=== PATIENT | female | born 1955 | race Caucasian/White ===

== ENCOUNTER → 2018-05-24 14:25 | Outpatient (CLI) | payer OTHER, SELFPAY ==
--- NOTE | 2018-05-24 14:27 | RAD_ITS ---
STUDY: X-RAY - CERVICAL SPINE REASON FOR EXAM: Female, 63 years old. Right-sided neck pain. No known trauma. TECHNIQUE: 6 view(s) of the cervical spine were obtained. COMPARISON: None FINDINGS: Normal anterior atlantoaxial articulation. Normal odontoid process. Normal cervical lordosis. Normal vertebral bodies and endplates. There is intervertebral disc space narrowing at C4-5, C5-6 and C6-7 with osteophyte formation most marked at C5-6 and C6-7. There is anterior bony neural foraminal encroachment at C5-6 and C6-7 bilaterally, most marked on the left. There is diffuse uncovertebral and facet sclerosis. The soft tissue structures are unremarkable. RAD/Cerv Spine 4 or 5 Views IMPRESSION: Cervical spondylosis as described. Electronically Signed: Demario Christie MD at 11:24 EDT , Service support ,
== END ==
PROVIDERS: Family Provider Internal Medicine; PCP Internal Medicine; Visit Provider Orthopaedic Surgery
DX: M54.2 Cervicalgia (principal)
CPT/HCPCS: 72050

== ENCOUNTER 2018-08-06 11:00 | Outpatient (RCR) | payer OTHER, SELFPAY ==
--- NOTE | 2018-06-06 10:59 | HP.PTEVAL_ITS ---
Patient's Visit Information FIOR LEÓN is a 63 year old F referred to Physical Therapy by Latia Santillan DO with a diagnosis of R shoulder calcific tendonitis. Date of Evaluation: 06/06/18 Physical Therapist: Juan Zaldivar, PT, - Visit Plan Frequency: 2x /Week Duration: 3 Weeks Plan: R shoulder strengthening of rot cuff, scap stab ex's, UBE, HEP, and US with acetic acid - Subjective Subjective: Pt reports she has had intermittent R shoulder pain for a couple years. Pt reports the pain continued to worsen, which is why she went to her Dr. Pt reports she had xrays which revealed calcific tendonitis in her R shoulder. Pt is R hand dom. Pt reports she has difficulty with reaching behind her back or out to open a door. Pt reports holding her grandchild also causes her increased pain. No PMHx of R shoulder complications. No T or N in R UE. Pt reports sleep difficulty at times secondary to pain. Pt c/o occasional neck pain which coincides with her R shoulder pain. 2/10 pain at rest, 6/10 pain at worst - Pain R shoulder Pain Intensity (Out of 10): 2 Pain Intensity Range: 6 - Objective Neuro: B UE sensation is WNL to light touch. B bicepital reflex= 2/3. Palpation : Pt is very sore with palpation of supraspinatus and biceps tendon. No obvious deformity. ROM: L shoulder flex= 165, abd= 170, ER= 55, IR WNL; R shoulder flex = 150, abd= 140, ER= 50, IR WNL. MMT: R shoulder is grossly 4-/5 throughout and painful in all positions. Special testing: pos empty can sign - Goals Goal 1:: Decrease R shoulder pain x 50% to aid with sleep Goal Time Frame: 4-6 Weeks Goal 2:: Increase R shoulder strength x 1 grade to aid with IADL's Goal Time Frame: 4-6 Weeks Goal 3:: Increase R shoulder flex and abd x 1 grade to aid with overhead activity Goal Time Frame: 4-6 Weeks Goal 4:: I with HEP Goal Time Frame: 4-6 Weeks - Rehabilitation Potential Physical Therapy Diagnosis: R shoulder pain, weakness, and limited ROM secondary to calcific tendonitis of R shoulder Rehabilitation Potential: Good - Anticipated Interventions Patient/Client Instruction: Educate patient on: Condition, Plan of Care For the Purpose of:: To improve self management Therapeutic Exercise to Include: Strength training, Endurance training, Flexibilty training, Active ROM, Scapular Strength/Stabilization For the Purpose of:: To decrease pain, To increase ROM, To improve muscle performance and motor function Ultrasound (thermal/non thermal): Yes - acetic acid For the Purpose of:: To decrease pain Thank you for the opportunity to evaluate your patient. For Medicare and Medicare HMO plans, please review the plan of care and approve it. It will need to be FAXED BACK to us at [phone] for Medicare purposes. Please let me know if there are questions or concerns regarding this plan of care. Physician Signature: Date:
--- NOTE | 2018-09-24 09:49 | HP.PT.NRP ---
HP - Discharge Summary (1) - Patient Information FIOR LEÓN was seen in my office for initial evaluation on 06/06/18. The following Plan of Care was established for this patient: Initial Frequency: 2x /Week Initial Duration: 3 Weeks - Anticipated Interventions Patient/Client Instruction: Educate patient on: Condition, Plan of Care For the Purpose of:: To improve self management Therapeutic Exercise to Include: Strength training, Endurance training, Flexibilty training, Active ROM, Scapular Strength/Stabilization For the Purpose of:: To decrease pain, To increase ROM, To improve muscle performance and motor function Ultrasound (thermal/non thermal): Yes - acetic acid For the Purpose of:: To decrease pain This patient was last seen in our office . Pertinent comments regarding their Physical therapy will appear below: Pt was treated for 5 PT visits for her R shoulder pain through the date of 08/06/18. Pt has not returned through todays date, and is therefore discontinued at this time. At this point I will be discontinuing this patient from physical therapy. I would be happy to see this patient again in the future if found appropriate by the physician. Thank you! Juan Zaldivar, PT,
== END 2018-08-06 19:00 | disposition home or self-care (01) ==
LOC: PT 11:00
PROVIDERS: Family Provider Internal Medicine; PCP Internal Medicine; Visit Provider Orthopaedic Surgery
DX: M75.31 Calcific tendinitis of right shoulder (principal); M65.4 Radial styloid tenosynovitis [de Quervain]
CPT/HCPCS: 97033; 97035; 97110; 97161

== ENCOUNTER → 2018-09-10 15:13 | Outpatient (CLI) | payer OTHER, SELFPAY ==
[2018-09-15 08:29] LABS: HPV APTIMA, High Risk Negative (Negative)
== END ==
PROVIDERS: Family Provider Internal Medicine; PCP Internal Medicine; Referring Provider Nurse Practitioner Women's Health; Visit Provider Nurse Practitioner Women's Health
DX: Z12.4 Encounter for screening for malignant neoplasm of cervix (principal)
CPT/HCPCS: 88175; G0145

== ENCOUNTER → 2018-09-21 09:55 | Outpatient (CLI) | payer OTHER, SELFPAY ==
--- NOTE | 2018-09-21 09:57 | BI_ITS ---
MAMMOGRAPHY - BILATERAL SCREENING REASON FOR EXAM: Female, 63 years old. Routine annual screening examination. PERTINENT HISTORY: Non-contributory. TECHNIQUE: Digital bilateral breast whitley (3D mammographic acquisition) in the CC and MLO projections. 2-D mediolateral oblique (MLO) and craniocaudad (CC) views of both breasts were obtained. CAD: Full Field Digital Mammography with Computer Added Detection was performed. COMPARISON: Comparison is made with prior study dated September 20, 2017 and August 16, 2016. FINDINGS: Breast Composition: There are scattered areas of fibroglandular density. There are no dominant masses or suspicious calcifications. No other significant abnormalities are identified. There has been no significant change since the prior study. BI/SCREENING MAMM (CAD), BILAT IMPRESSION: Stable bilateral screening mammogram. Yearly follow-up mammogram recommended. (A) ASSESSMENT CATEGORY: BIRADS Category 1: Negative. A letter regarding these results will be sent to the patient by the facility within 30 days. Approximately 10% of breast cancers are not detected by mammography. A normal mammogram should not delay biopsy of a clinically suspicious abnormality. [id number] Electronically Signed: Kenneth Hernandez MD at 12:41 EDT Tel [phone], Service support ,
== END ==
PROVIDERS: Family Provider Internal Medicine; PCP Internal Medicine; Referring Provider Nurse Practitioner Women's Health; Visit Provider Nurse Practitioner Women's Health
DX: Z12.31 Encounter for screening mammogram for malignant neoplasm of breast (principal)
CPT/HCPCS: 77063; 77067

== ENCOUNTER → 2018-11-02 07:42 | Outpatient (CLI) | payer OTHER, SELFPAY ==
--- NOTE | 2018-11-02 07:46 | MRI_ITS ---
STUDY: MRI RIGHT SHOULDER REASON FOR EXAM: Female, 63 years old. Shoulder pain, decreased range of motion and decreased strength. No known injury. TECHNIQUE: Standardized fat and water weighted pulse sequences were obtained in all 3 orthogonal planes. COMPARISON: None. FINDINGS: There is supraspinatus and infraspinatus tendinosis with calcification compatible with calcific tendinitis (coronal series 4 images 6-12). No full-thickness tear is identified. There is subscapularis tendinosis without a full-thickness tear (axial series 2 images 7-11). Normal teres minor tendon. Normal supraspinatus muscle. Normal infraspinatus muscle. Normal subscapularis muscle. Normal teres minor muscle. There is mild arthrosis of the glenohumeral joint with a glenohumeral joint effusion (axial series 2 images 6-11). Normal humeral head and visualized proximal humerus. Normal biceps labral complex. Normal intracapsular long biceps tendon. Normal labrum. Normal capsulo- ligamentous complex. Normal rotator interval. There is acromioclavicular joint hypertrophy with narrowing of the subacromial space (sagittal series 6 images 10-14). There is a small AC joint effusion (coronal series 4 image 13). There is a Type II morphology (curved), with a neutral orientation. There is a small amount of fluid in the subacromial-subdeltoid bursa (coronal series 4 image 10). Normal visualized coracohumeral and coracoacromial ligaments. Normal quadrilateral space. Normal axillary space. Normal deltoid muscle. Normal trapezius muscle. MRI/Upper Ext Joint Only(Routine) IMPRESSION: Supraspinatus and infraspinatus tendinosis with calcification compatible with calcific tendinitis. Subscapularis tendinosis without a full-thickness tear. Mild arthrosis of the glenohumeral joint. Acromioclavicular joint hypertrophy with narrowing of the subacromial space. Small AC joint effusion. Small glenohumeral joint effusion with a small amount of fluid in the subacromial-subdeltoid bursa. Electronically Signed: Demario Christie MD at 17:01 EST , Service support ,
== END ==
PROVIDERS: Family Provider Internal Medicine; PCP Internal Medicine; Referring Provider Orthopaedic Surgery; Visit Provider Orthopaedic Surgery
DX: M75.41 Impingement syndrome of right shoulder (principal); M75.81 Other shoulder lesions, right shoulder
CPT/HCPCS: 73221

== ENCOUNTER → 2019-08-20 | Outpatient (CLI) | payer OTHER, SELFPAY ==
[2019-05-10 15:50] VITALS: BMI 26.3
--- NOTE | 2019-08-20 15:29 | RAD_ITS ---
STUDY: X-RAY - RIGHT HAND REASON FOR EXAM: Pain. TECHNIQUE: 3 view(s) of the hand. COMPARISON: None. FINDINGS: Normal radiocarpal articulation. Normal distal radioulnar joint. Normal visualized carpal bones. Normal carpal articulations Normal carpometacarpal articulation of the thumb. Normal second through fifth carpometacarpal joints. Normal metacarpi. Normal metacarpophalangeal joint of the thumb. Normal interphalangeal joint of the thumb. Normal proximal and distal phalanges of the thumb. Normal metacarpophalangeal joints of the second through fifth fingers. Normal proximal and distal interphalangeal joints of the second through fifth fingers. Normal phalanges of the second through fifth fingers. The soft tissue structures are unremarkable. RAD/Hand Min 3 Views IMPRESSION: Normal x-ray examination of the right hand. Electronically Signed: Rolando Escobar MD at 15:58 EDT Tel , Service support ,
== END | disposition home or self-care (01) ==
LOC: HPRAD 15:28
PROVIDERS: Family Provider Internal Medicine; PCP Internal Medicine; Referring Provider Orthopaedic Surgery; Visit Provider Orthopaedic Surgery
DX: M65.341 Trigger finger, right ring finger (principal); M79.644 Pain in right finger(s)
CPT/HCPCS: 73130

== ENCOUNTER → 2019-09-23 | Outpatient (CLI) | payer OTHER, SELFPAY ==
[2019-03-12 14:42] VITALS: BMI 26.3
[2019-09-23 10:04] VITALS: BMI 26.3
--- NOTE | 2019-09-23 10:35 | BI_ITS ---
MAMMOGRAPHY - BILATERAL SCREENING REASON FOR EXAM: Female, 64 years old. Routine annual screening examination. PERTINENT HISTORY: Non-contributory. TECHNIQUE: Digital bilateral breast kenan (3D mammographic acquisition) in the CC and MLO projections. 2-D mediolateral oblique (MLO) and craniocaudad (CC) views of both breasts were obtained. CAD: Full Field Digital Mammography with Computer Added Detection was performed. COMPARISON: Comparison is made with prior study September 21, 2018 and September 20, 2017. FINDINGS: Breast Composition: There are scattered areas of fibroglandular density. There are no dominant masses or suspicious calcifications. Stable small benign-appearing bilateral axillary lymph nodes. No other significant abnormalities are identified. There has been no significant change since the prior study. BI/SCREEN MAMM (CAD) W/KENAN BILAT IMPRESSION: Stable bilateral screening mammogram. Yearly follow-up mammogram recommended. (A) ASSESSMENT CATEGORY: BIRADS Category 2: Benign. A letter regarding these results will be sent to the patient by the facility within 30 days. Approximately 10% of breast cancers are not detected by mammography. A normal mammogram should not delay biopsy of a clinically suspicious abnormality. [id number] Electronically Signed: Kenneth Hernandez, at 13:53 EDT , Service support ,
== END | disposition home or self-care (01) ==
LOC: OPBI 10:33
PROVIDERS: Family Provider Internal Medicine; PCP Internal Medicine; Referring Provider Nurse Practitioner Women's Health; Visit Provider Nurse Practitioner Women's Health
DX: Z12.31 Encounter for screening mammogram for malignant neoplasm of breast (principal)
CPT/HCPCS: 77063; 77067

== ENCOUNTER → 2020-05-14 13:46 | Outpatient (CLI) | payer OTHER, SELFPAY ==
[2020-05-14 13:42] VITALS: BMI 26.3
--- NOTE | 2020-05-14 13:47 | RAD_ITS ---
STUDY: X-RAY - CERVICAL SPINE REASON FOR EXAM: Female, 65 years old. NECK PAIN AND NUMBNESS LEFT HAND TECHNIQUE: 5 view(s) of the cervical spine were obtained including oblique views. COMPARISON: Comparison is made with prior study dated May 24, 2018. FINDINGS: There are degenerative changes of the anterior atlantoaxial articulation. Normal odontoid process. There is straightening of the normal cervical lordosis. There is endplate spondylosis at the C5-C6 and C6-C7 levels. There is degenerative disc disease with disc space narrowing at the C5-C6 and C6-C7 levels.. Stable neural foraminal stenosis at the C5-6 and C6-C7 levels worse on the left side. The soft tissue structures are unremarkable. RAD/Cerv Spine 4 or 5 Views IMPRESSION: Disc space narrowing and spondylosis at the C5-C6 and C6-C7 levels with bilateral neural foraminal stenosis. Electronically Signed: Kenneth Hernandez, at 12:43 EDT , Service support ,
== END ==
PROVIDERS: PCP Internal Medicine; Referring Provider Orthopaedic Surgery; Visit Provider Orthopaedic Surgery
DX: M79.602 Pain in left arm (principal)
CPT/HCPCS: 72050

== ENCOUNTER → 2020-05-21 | Outpatient (CLI) | payer OTHER, SELFPAY ==
[2020-05-14 13:42] VITALS: BMI 26.3
--- NOTE | 2020-05-21 11:07 | MRI_ITS ---
STUDY: MRI CERVICAL SPINE WITHOUT CONTRAST REASON FOR EXAM: Female, 65 years old. left arm pain, numbness/tingling in arm and fingers TECHNIQUE: Standardized fat and water weighted pulse sequences were obtained in the sagittal and axial planes. COMPARISON: None FINDINGS: Normal foramen magnum and brainstem-cervical cord junction. There is straightening of the normal cervical lordosis. C2-3: Normal endplates. Normal disc height, signal and morphology. Normal central canal and intervertebral neural foramina. C3-4: There is minimal disc space narrowing and endplate spondylosis. There is no significant disc herniation, central canal or foraminal stenosis. C4-5: There is minimal disc space narrowing and endplate spondylosis. There is no significant disc herniation, central canal or foraminal stenosis. There is moderate left facet arthropathy C5-6: There is moderate disc space narrowing and endplates spondylosis. Mild disc osteophyte complex with mild central canal stenosis. Uncovertebral and facet adenopathy with severe left foraminal stenosis. No significant right foraminal stenosis. C6-7: There is moderate disc space narrowing and endplates spondylosis. Mild disc osteophyte complex with mild central canal stenosis. Uncovertebral and facet arthropathy with moderate left foraminal stenosis no significant right foraminal stenosis. C7-T1: There is minimal disc space narrowing and endplate spondylosis. There is no significant disc herniation, central canal or foraminal stenosis. Normal cervical cord. MRI/Spine Cervical (Routine) IMPRESSION: C5/C6: Severe left foraminal stenosis. C6/C7: Moderate left foraminal stenosis. Electronically Signed: Janene Conway MD at 11:54 EDT Tel , Service support ,
== END | disposition home or self-care (01) ==
PROVIDERS: PCP Internal Medicine; Referring Provider Orthopaedic Surgery; Visit Provider Orthopaedic Surgery
DX: G54.2 Cervical root disorders, not elsewhere classified (principal); M50.10 Cervical disc disorder with radiculopathy, unspecified cervical region
CPT/HCPCS: 72141

== ENCOUNTER → 2020-06-02 | Outpatient (CLI) | payer OTHER, SELFPAY ==
[2020-06-02 14:55] VITALS: BMI 26.3
--- NOTE | 2020-06-02 15:01 | RAD_ITS ---
STUDY: X-RAY - RIGHT FOOT CLINICAL: Right foot pain. TECHNIQUE: 3 view(s) of the foot. COMPARISON: None. FINDINGS: Normal talus, calcaneus, and tarsal bones. Normal visualized subtalar, talonavicular, calcaneocuboid, tarsal and tarsometatarsal articulations. Normal metatarsi. There are marginal osteophytes and joint space narrowing of the metatarsophalangeal joint of the great toe. There is a bipartite fibular sesamoid. Normal interphalangeal joint of the great toe. Normal phalanges of the great toe. Normal second through fifth metatarsophalangeal joints. Normal interphalangeal joints and phalanges of the lesser toes. There is soft tissue swelling at the first metatarsophalangeal joint. RAD/Foot min 3 Views IMPRESSION: Arthrosis of the first metatarsophalangeal joint. Electronically Signed: Rolando Escobar MD at 8:37 EDT Tel , Service support ,
== END | disposition home or self-care (01) ==
LOC: HPRAD 15:01
PROVIDERS: PCP Internal Medicine; Referring Provider Orthopaedic Surgery; Visit Provider Orthopaedic Surgery
DX: M79.671 Pain in right foot (principal)
CPT/HCPCS: 73630

== ENCOUNTER 2020-06-26 13:00 | Outpatient (RCR) | payer OTHER, SELFPAY ==
[2020-05-14 13:42] VITALS: BMI 26.3
[2020-06-02 14:55] VITALS: BMI 26.3
--- NOTE | 2020-06-08 09:41 | HP.PTEVAL ---
Patient's Visit Information FIOR LEÓN is a 65 year old F referred to Physical Therapy by Dr. Latia Santillan DO with a diagnosis of Cervical foraminal stenosis. Date of Evaluation: 06/05/20 Physical Therapist: Asif Hanley DPT - Visit Plan Frequency: 2x /Week Duration: 4 Weeks Plan: Start with mechanical traction, gental strengthening, manual tehniques to levator scap on L side. L UT and scap stretching. - Subjective Pt. is here today for her initial evaluation with diagnosis cervical foraminal stenosis. Pt. reports having L arm N/T into her first and 2nd fingers. Pt. reports symptoms are intermittent. Pt. reprots increased symptoms with looking up, lifting, increased throughout the day. pt. reprots no muscle weakness, she is not dropping any objects. Pt. did have an MRI showing C5-C7 foraminal stenonsis L worse than R. Pt. reports no neck pain, but mostly her symptoms in her hand. Pt. is hopeful to reduce her symptoms in order to get back to all recreational and household work without issues. - Pain L hand Pain Intensity (Out of 10): 2 Pain Intensity Range: 0 Comment: not much pain, but N/T in 4th/fifth fingers - Objective POSTURE: Pt. has slight FH posture, slight rounded shoulders. PALPATION: Pt. has pain with palpation of L levator scapulea. pt. has increased symptoms with LUT and hypomobility at C5-T1, no pain noted. NEURO: Pt. has normal sensation throghout BUEs. Pt. has normal strength thorughout BUEs. ROM: CERVICAL SPINE: flexion- nil loss NE, extension- mod loss increase NW, rotation R min loss increase NW, rotation L mod loss increase NW, SB mod loss bilat NE. B SHOULDERS: normal throughout. MMT: pt. has 5/5 strength throughout BUEs, CERVICAL ISO: normal throughout. Pt. has does have weakness of postural musculature< scapular region. - Special Tests C/S Radiculapathy - Left Upper limb tension test: Negative C/S Radiculapathy - Right Upper limb tension test: Negative C/S Radiculapathy - Left Spurlings: Positive C/S Radiculapathy - Right Spurlings: Negative C/S Radiculapathy - Left Cervical distraction: Negative C/S Radiculapathy - Right Cervical distraction: Negative C/S Radiculapathy - Left Relief test: Positive C/S Radiculapathy - Right Relief test: Negative Sharp Ned: Negative Vertebral Artery Test: Negative Alar Ligament Test: Negative Cervical Sitting: Protrusion - Mechanical Response: No effect Cervical Sitting: Protrusion - Symptoms During Testing: No effect Cervical Sitting: Protrusion - Symptoms After Testing: No effect Cervical Sitting: Retraction - Mechanical Response: No effect Cervical Sitting: Retraction - Symptoms During Testing: Increases Cervical Sitting: Retraction - Symptoms After Testing: No worse Cervical Sitting: Retraction-Extension - Mechanical Response: No effect Cerv Sitting: Retraction-Extension - Symptoms During Testing: Increases Cerv Sitting: Retraction-Extension - Symptoms After Testing: No worse Cervical Sitting: Sidebend Right - Mechanical Response: No effect Cervical Sitting: Sidebend Right - Symptoms During Testing: No effect Cervical Sitting: Sidebend Right - Symptoms After Testing: No effect Cervical Sitting: Sidebend Left - Mechanical Response: No effect Cervical Sitting: Sidebend Left - Symptoms During Testing: No effect Cervical Sitting: Sidebend Left - Symptoms After Testing: No effect Cervical Sitting: Rotation Right - Mechanical Response: No effect Cervical Sitting: Rotation Right - Symptoms During Testing: No effect Cervical Sitting: Rotation Right - Symptoms After Testing: No effect Cervical Sitting: Rotation Left - Mechanical Response: No effect Cervical Sitting: Rotation Left - Symptoms During Testing: Increases Cervical Sitting: Rotation Left - Symptoms After Testing: No worse Cervical Sitting: Flexion - Mechanical Response: No effect Cervical Sitting: Flexion - Symptoms During Testing: No effect Cervical Sitting: Flexion - Symptoms After Testing: No effect - Goals Goal 1:: LTG: Pt. to be I with HEP. Goal Time Frame: 4-6 Weeks Goal 2:: STG: Pt. to have decreased N/T by 50% in hand/arm. Goal Time Frame: 2-4 Weeks Goal 3:: LTG: Pt. to have N/T abolished in L hand. Goal Time Frame: 4-6 Weeks Goal 4:: LTG: Pt. to have increased cervical ROm by 25% in all directions. Goal Time Frame: 4-6 Weeks Goal 5:: LTG: pt. to complete all ADLs and work activities without issues. Goal Time Frame: 4-6 Weeks - Rehabilitation Potential Physical Therapy Diagnosis: Pt. has signs and symptoms consistent with Cervical foraminal stenosis. Pt. has N/T along the C5-C6 nerve dermatonal pattern. No mytomal weakness noted. Pt. would benefit from PT - Anticipated Interventions Patient/Client Instruction: Educate patient on: Condition, Plan of Care, Risk Factors, Benefits of Fitness Program For the Purpose of:: To improve self management, To prevent re-injury, To improve ability to perform tasks related to life management, To improve tolerance to ADL's Therapeutic Exercise to Include: Strength training, Power training, Endurance training, Body mechanics, Postural training, Flexibilty training, Gait and locomotor training, Passive ROM, Active ROM, Dynamic Lumbar Stabilization, Jayme Exercises, Scapular Strength/Stabilization For the Purpose of:: To decrease pain, To decrease swelling/inflammation, To increase ROM, To improve nutrient delivery to tissue, To increase oxygenation perfusion, To improve muscle performance and motor function, To improve ability to perform ADL's, To increase tolerance to activity/condition/position, To decrease level of supervision to perform tasks, To improve ability of physical actions for home/community/work/leisure, To decrease soft tissue restriction, To increase flexibility/ROM Manual Therapy Techniques to Include: Mobilization, Passive ROM, Functional dry needling, Soft tissue mobilization For the Purpose of:: To decrease pain, To decrease swelling/inflammation, To increase ROM, To improve nutrient delivery to tissue Thermo therapy (hot pack): Yes Ultrasound (thermal/non thermal): Yes Intermittent cervical traction: Yes For the Purpose of:: To decrease pain, To decrease swelling/inflammation, To increase ROM Thank you for the opportunity to evaluate your patient. For Medicare and Medicare HMO plans, please review the plan of care and approve it. It will need to be FAXED BACK to us at [phone] for Medicare purposes. For Medicare only, by signing this I certify the plan of care. Please let me know if there are questions or concerns regarding this plan of care. Physician Signature: Date:
--- NOTE | 2020-06-26 15:11 | HP.PTREVAL ---
Dr. Latia Santillan, DO, It has been my pleasure to treat FIOR LEÓN over the last 7 visits for Cervical foraminal stenosis. Please see the progress note below for an update on the physical therapy plan of care! Subjective: Pt. reports overall 95% better. Pt has occassional tingling in her thumb and index finger, but minimally. Pt. reports being HEP compliant. Objective/Function: Pt. has good ROM of cervcial spine, stiff into L rotation and extension. I have her startign some SNAGs into both motions. Pt. is overall doing well. Pt. has mild tringling with enxtension. Pt. has good overall strength. Pt. is to trial exercises on own for 2-3 weeks. If she is doing well I will DC the case, if she has increased symptosm she is to call back in. Pt. consents. Plan Plan: Pt. to trial exercises on own for 2-3 weeks. DC if I do not hear from her in a few weeks. Goals Goal 1:: LTG: Pt. to be I with HEP. Goal Time Frame: 4-6 Weeks Goal Progress: Goal Met Goal 2:: STG: Pt. to have decreased N/T by 50% in hand/arm. Goal Time Frame: 2-4 Weeks Goal Progress: Goal Met Goal 3:: LTG: Pt. to have N/T abolished in L hand. Goal Time Frame: 4-6 Weeks Goal Progress: Progressing Goal 4:: LTG: Pt. to have increased cervical ROm by 25% in all directions. Goal Time Frame: 4-6 Weeks Goal Progress: Goal Met Goal 5:: LTG: pt. to complete all ADLs and work activities without issues. Goal Time Frame: 4-6 Weeks Goal Progress: Goal Met Anticipated Interventions Patient/Client Instruction: Educate patient on: Condition, Plan of Care, Risk Factors, Benefits of Fitness Program For the Purpose of:: To improve self management, To prevent re-injury, To improve ability to perform tasks related to life management, To improve tolerance to ADL's Therapeutic Exercise to Include: Strength training, Power training, Endurance training, Body mechanics, Postural training, Flexibilty training, Gait and locomotor training, Passive ROM, Active ROM, Dynamic Lumbar Stabilization, Jayme Exercises, Scapular Strength/Stabilization For the Purpose of:: To decrease pain, To decrease swelling/inflammation, To increase ROM, To improve nutrient delivery to tissue, To increase oxygenation perfusion, To improve muscle performance and motor function, To improve ability to perform ADL's, To increase tolerance to activity/condition/position, To decrease level of supervision to perform tasks, To improve ability of physical actions for home/community/work/leisure, To decrease soft tissue restriction, To increase flexibility/ROM Manual Therapy Techniques to Include: Mobilization, Passive ROM, Functional dry needling, Soft tissue mobilization For the Purpose of:: To decrease pain, To decrease swelling/inflammation, To increase ROM, To improve nutrient delivery to tissue Thermo therapy (hot pack): Yes Ultrasound (thermal/non thermal): Yes Intermittent cervical traction: Yes For the Purpose of:: To decrease pain, To decrease swelling/inflammation, To increase ROM Please do not hesitate to contact me at [phone] by phone or if you have questions or concerns regarding this new plan of care! Sincerely, Asif Hanley DPT
== END 2020-06-26 19:00 | disposition home or self-care (01) ==
LOC: PT 13:00
PROVIDERS: PCP Internal Medicine; Referring Provider Orthopaedic Surgery; Visit Provider Orthopaedic Surgery
DX: M50.10 Cervical disc disorder with radiculopathy, unspecified cervical region (principal); M48.02 Spinal stenosis, cervical region
CPT/HCPCS: 97012; 97110; 97161; 97164

== ENCOUNTER → 2020-09-24 | Outpatient (CLI) | payer OTHER, SELFPAY ==
[2019-09-23 10:04] VITALS: BMI 26.3
[2020-09-24 10:14] VITALS: BMI 25.0
--- NOTE | 2020-09-24 10:45 | BI_ITS ---
MAMMOGRAPHY - BILATERAL SCREENING REASON FOR EXAM: Female, 65 years old. Routine annual screening examination. PERTINENT HISTORY: Non-contributory. TECHNIQUE: Digital bilateral breast kenan (3D mammographic acquisition) in the CC and MLO projections. 2-D mediolateral oblique (MLO) and craniocaudad (CC) views of both breasts were obtained. CAD: Full Field Digital Mammography with Computer Added Detection was performed. COMPARISON: Comparison is made with prior study dated 09/23/2019 and 09/21/2018. FINDINGS: Breast Composition: There are scattered areas of fibroglandular density. There are no dominant masses or suspicious calcifications. No other significant abnormalities are identified. There has been no significant change since the prior study. BI/SCREEN MAMM (CAD) W/KENAN BILAT IMPRESSION: Stable bilateral screening mammogram. Yearly follow-up mammogram recommended. (A) ASSESSMENT CATEGORY: BIRADS Category 1: Negative. A letter regarding these results will be sent to the patient by the facility within 30 days. Approximately 10% of breast cancers are not detected by mammography. A normal mammogram should not delay biopsy of a clinically suspicious abnormality. [id number] Electronically Signed: Kenneth Hernandez, at 12:34 EDT , Service support ,
== END | disposition home or self-care (01) ==
LOC: OPBI 10:44
PROVIDERS: PCP Internal Medicine; Referring Provider Nurse Practitioner Women's Health; Visit Provider Nurse Practitioner Women's Health
DX: Z12.31 Encounter for screening mammogram for malignant neoplasm of breast (principal)
CPT/HCPCS: 77063; 77067

== ENCOUNTER 2021-01-28 09:14 | Outpatient (RCR) | payer MEDICARE, SELFPAY ==
[2020-09-24 10:14] VITALS: BMI 25.0
[2021-01-28] MEDS: COVID-19 VACC, MRNA(PFIZER)/PF 30 MCG/0.3 ML SYRINGE IM (19:33)
[2021-02-18] MEDS: COVID-19 VACC, MRNA(PFIZER)/PF 30 MCG/0.3 ML SYRINGE IM (11:49)
== END 2021-05-04 23:59 ==
LOC: IMMUN 09:14
PROVIDERS: PCP Internal Medicine; Visit Provider Family Medicine
DX: Z23 Encounter for immunization (principal)
CPT/HCPCS: 0001A; 0002A; 91300

== ENCOUNTER → 2021-09-27 10:34 | Outpatient (CLI) | payer MEDICARE, SELFPAY ==
[2020-09-24 10:14] VITALS: BMI 25.0
--- NOTE | 2021-09-27 10:37 | BI_ITS ---
MAMMOGRAPHY - BILATERAL SCREENING REASON FOR EXAM: Female, 66 years old. Routine annual screening examination. PERTINENT HISTORY: Non-contributory. TECHNIQUE: Digital bilateral breast kenan (3D mammographic acquisition) in the CC and MLO projections. 2-D mediolateral oblique (MLO) and craniocaudad (CC) views of both breasts were obtained. CAD: Full Field Digital Mammography with Computer Added Detection was performed. COMPARISON: Comparison is made with prior study dated 09/24/2020 and 09/23/2018 FINDINGS: Breast Composition: The breasts are almost entirely fatty. There are no dominant masses or suspicious calcifications. Stable small benign-appearing bilateral axillary lymph nodes. No other significant abnormalities are identified. There has been no significant change since the prior study. BI/SCRN MAMM (CAD)W/KENAN BILAT IMPRESSION: Stable bilateral screening mammogram. Yearly follow-up mammogram recommended. (A) ASSESSMENT CATEGORY: BIRADS Category 2: Benign. A letter regarding these results will be sent to the patient by the facility within 30 days. Approximately 10% of breast cancers are not detected by mammography. A normal mammogram should not delay biopsy of a clinically suspicious abnormality. [id number] Electronically Signed: Kenneth Hernandez MD at 13:04 EDT , Service support ,
== END ==
PROVIDERS: PCP Internal Medicine; Referring Provider Nurse Practitioner Women's Health; Visit Provider Nurse Practitioner Women's Health
DX: Z12.31 Encounter for screening mammogram for malignant neoplasm of breast (principal)
CPT/HCPCS: 77063; 77067

== ENCOUNTER → 2021-10-05 11:23 | Outpatient (CLI) | payer MEDICARE, SELFPAY ==
--- NOTE | 2021-10-05 11:28 | US_ITS ---
STUDY: ULTRASOUND OF THE FEMALE PELVIS - COMPLETE REASON FOR EXAM: Female, 66 years old. Abdominal bloating. Pelvic pressure. LMP: The patient is postmenopausal. TECHNIQUE: Transabdominal and Transvaginal TECHNICAL QUALITY: Adequate. COMPARISON: None. FINDINGS: The uterus is anteverted and is tilted to the left side of the pelvis. The uterus measures 4.9 cm x 3.4 cm x 2.3 cm. Normal uterine cervix. The endometrium measures 2 mm in thickness, and is fluid distended. There is no demonstrated endometrial mass. There is no demonstrated myometrial mass. I.U.D. - The patient does not have an I.U.D. The right ovary is visualized. The right ovary measures 1.4 cm x 1 cm x 2.1 cm. There is no right ovarian cyst or ovarian mass. There is no visualized right adnexal mass or complex lesion. There is normal arterial and normal venous vascularity. The left ovary is non-visualized. There is no fluid in the cul-de-sac. US/Pelvic (Non ) IMPRESSION: Fluid-filled endometrium measuring 2 mm. Electronically Signed: Kenneth Hernandez MD at 15:04 EST , Service support ,
--- NOTE | 2021-10-05 11:28 | US_ITS ---
STUDY: ULTRASOUND OF THE FEMALE PELVIS - COMPLETE REASON FOR EXAM: Female, 66 years old. Abdominal bloating. Pelvic pressure. LMP: The patient is postmenopausal. TECHNIQUE: Transabdominal and Transvaginal TECHNICAL QUALITY: Adequate. COMPARISON: None. FINDINGS: The uterus is anteverted and is tilted to the left side of the pelvis. The uterus measures 4.9 cm x 3.4 cm x 2.3 cm. Normal uterine cervix. The endometrium measures 2 mm in thickness, and is fluid distended. There is no demonstrated endometrial mass. There is no demonstrated myometrial mass. I.U.D. - The patient does not have an I.U.D. The right ovary is visualized. The right ovary measures 1.4 cm x 1 cm x 2.1 cm. There is no right ovarian cyst or ovarian mass. There is no visualized right adnexal mass or complex lesion. There is normal arterial and normal venous vascularity. The left ovary is non-visualized. There is no fluid in the cul-de-sac. US/Transvaginal Non- IMPRESSION: Fluid-filled endometrium measuring 2 mm. Electronically Signed: Kenneth Hernandez MD at 15:04 EST , Service support ,
== END ==
PROVIDERS: PCP Internal Medicine; Referring Provider Nurse Practitioner Women's Health; Visit Provider Nurse Practitioner Women's Health
DX: R14.0 Abdominal distension (gaseous) (principal)
CPT/HCPCS: 76830; 76856

== ENCOUNTER → 2022-09-28 | Outpatient (CLI) | payer MEDICARE, SELFPAY ==
--- NOTE | 2022-09-28 11:41 | BI_ITS ---
MAMMOGRAPHY - BILATERAL SCREENING REASON FOR EXAM: Female, 67 years old. Routine annual screening examination. PERTINENT HISTORY: Non-contributory. TECHNIQUE: Digital bilateral breast kenan (3D mammographic acquisition) in the CC and MLO projections. 2-D mediolateral oblique (MLO) and craniocaudad (CC) views of both breasts were obtained. CAD: Full Field Digital Mammography with Computer Added Detection was performed. COMPARISON: Comparison is made with prior study 09/27/2021 and 09/24/2020. FINDINGS: Breast Composition: There are scattered areas of fibroglandular density. There are no dominant masses or suspicious calcifications. Stable small benign-appearing bilateral axillary lymph nodes. No other significant abnormalities are identified. There has been no significant change since the prior study. BI/SCRN MAMM (CAD)W/KENAN BILAT IMPRESSION: Stable bilateral screening mammogram. Yearly follow-up mammogram recommended. (A) ASSESSMENT CATEGORY: BIRADS Category 2: Benign. A letter regarding these results will be sent to the patient by the facility within 30 days. Approximately 10% of breast cancers are not detected by mammography. A normal mammogram should not delay biopsy of a clinically suspicious abnormality. [id number] Electronically Signed: Kenneth Hernandez MD at 12:51 EDT ,
== END | disposition home or self-care (01) ==
LOC: OPBI 11:40
PROVIDERS: PCP Internal Medicine; Visit Provider Nurse Practitioner Women's Health
DX: Z12.31 Encounter for screening mammogram for malignant neoplasm of breast (principal); N89.8 Other specified noninflammatory disorders of vagina
CPT/HCPCS: 77063; 77067; 87070; 87205

== ENCOUNTER → 2023-08-17 | Outpatient (CLI) | payer MEDICARE, SELFPAY ==
--- NOTE | 2023-08-17 12:49 | MRI_ITS ---
STUDY: MRI BRAIN WITH AND WITHOUT CONTRAST INDICATION: HEARING LOSS ATTN IAC, tinnitus EXAMINATION: MR Attn IACs and/or Temporal Bones WO/W Contrast TECHNIQUE: Standardized multiplanar fat and water weighted pulse sequences were obtained including small [id number] images of the internal auditory canals. IV 13ml clariscan was administered for the contrast portion of the examination. COMPARISON: None. FINDINGS: BRAIN PARENCHYMA: No evidence of an acute infarct. No evidence of acute intracranial hemorrhage. No evidence of a mass. White matter changes consistent with mild chronic microvascular disease. CSF SPACES: The ventricles, sulci and subarachnoid cisterns are appropriate for age. VASCULAR SYSTEM: Abnormal decreased T1 and T2 signal within the left MCA. CALVARIUM AND SKULL BASE: Unremarkable. PARANASAL SINUSES AND MASTOID AIR CELLS: Unremarkable. ORBITS: The globes, extraocular muscles, optic nerves and retrobulbar fat appear normal. MRI/Brain W/WO Contrast IMPRESSION: 1. Normal appearance of the bilateral internal auditory canals with no evidence of a mass and no abnormal enhancement. 2. Abnormal decreased T1 and T2 signal within the left MCA. Recommend follow-up with CTA versus MRA to evaluate for possible stenosis versus occlusion versus aneurysm. Electronically Signed: Pola Tong DO at 4:26 EDT ,
[2023-08-17 13:22] LABS: CREATININE FINGERSTICK < 0.9 mg/dL (0.55-1.02); EGFR FINGERSTICK > 60.0000 mL/min (>60)
== END | disposition home or self-care (01) ==
PROVIDERS: PCP Internal Medicine; Referring Provider Otolaryngology; Visit Provider Otolaryngology
DX: H90.3 Sensorineural hearing loss, bilateral (principal)
CPT/HCPCS: 70553; A9575

== ENCOUNTER → 2023-10-27 | Outpatient (CLI) | payer MEDICARE, SELFPAY ==
--- NOTE | 2023-10-27 10:45 | BI_ITS ---
MAMMOGRAPHY - BILATERAL SCREENING REASON FOR EXAM: Female, 68 years old. Routine annual screening examination. PERTINENT HISTORY: Non-contributory. TECHNIQUE: Digital bilateral breast kenan (3D mammographic acquisition) in the CC and MLO projections. 2-D mediolateral oblique (MLO) and craniocaudad (CC) views of both breasts were obtained. CAD: Full Field Digital Mammography with Computer Added Detection was performed. COMPARISON: Comparison is made with prior study September 28, 2022 and September 27, 2021. FINDINGS: Breast Composition: There are scattered areas of fibroglandular density. There are no dominant masses or suspicious calcifications. Stable small benign-appearing bilateral axillary lymph nodes. No other significant abnormalities are identified. There has been no significant change since the prior study. BI/SCRN MAMM (CAD)W/KENAN BILAT IMPRESSION: Stable bilateral screening mammogram. Yearly follow-up mammogram recommended. (A) ASSESSMENT CATEGORY: BIRADS Category 2: Benign. A letter regarding these results will be sent to the patient by the facility within 30 days. Approximately 10% of breast cancers are not detected by mammography. A normal mammogram should not delay biopsy of a clinically suspicious abnormality. [id number] Electronically Signed: Kenneth Hernandez MD at 12:14 EST ,
== END | disposition home or self-care (01) ==
LOC: OPBI 10:45
PROVIDERS: PCP Internal Medicine; Visit Provider Nurse Practitioner Women's Health
DX: Z12.31 Encounter for screening mammogram for malignant neoplasm of breast (principal)
CPT/HCPCS: 77063; 77067

== ENCOUNTER 2024-07-02 11:00 | Outpatient (RCR) | payer MEDICARE, SELFPAY | END 2024-07-02 19:00 | disposition home or self-care (01) | LOC: PT 11:00 | PROVIDERS: PCP Internal Medicine; Referring Provider Internal Medicine; Visit Provider Internal Medicine | DX: M47.812 Spondylosis without myelopathy or radiculopathy, cervical region (principal) | CPT/HCPCS: 97012; 97035; 97140; 97162 ==

== ENCOUNTER → 2024-10-28 | Outpatient (CLI) | payer MEDICARE, SELFPAY ==
--- NOTE | 2024-10-28 12:13 | BI_ITS ---
MAMMOGRAPHY - BILATERAL SCREENING REASON FOR EXAM: Female, 69 years old. Routine annual screening examination. PERTINENT HISTORY: Non-contributory. TECHNIQUE: Digital bilateral breast kenan (3D mammographic acquisition) in the CC and MLO projections. 2-D mediolateral oblique (MLO) and craniocaudad (CC) views of both breasts were obtained. CAD: Full Field Digital Mammography with Computer Added Detection was performed. COMPARISON: Comparison is made with prior study dated October 27, 2023 and September 28, 2022. FINDINGS: Breast Composition: There are scattered areas of fibroglandular density. There are no dominant masses or suspicious calcifications. Stable small bilateral axillary lymph nodes. No other significant abnormalities are identified. There has been no significant change since the prior study. BI/SCRN MAMM (CAD)W/KENAN BILAT IMPRESSION: Stable bilateral screening mammogram. Yearly follow-up mammogram recommended. (A) ASSESSMENT CATEGORY: BIRADS Category 2: Benign. A letter regarding these results will be sent to the patient by the facility within 30 days. Approximately 10% of breast cancers are not detected by mammography. A normal mammogram should not delay biopsy of a clinically suspicious abnormality. [id number] Electronically Signed: Kenneth Hernandez MD at 14:13 EST ,
== END | disposition home or self-care (01) ==
LOC: OPBI 12:13
PROVIDERS: PCP Internal Medicine; Referring Provider Nurse Practitioner Women's Health; Visit Provider Nurse Practitioner Women's Health
DX: Z12.31 Encounter for screening mammogram for malignant neoplasm of breast (principal)
CPT/HCPCS: 77063; 77067